=== PATIENT | female | born 1985 | race Caucasian/White ===

== ENCOUNTER 2019-07-22 18:00 | Outpatient (CLI) | payer BC, SELFPAY ==
[2019-07-22 18:25] VITALS: BMI 26.4
[2019-07-22 19:39] VITALS: BP 126/85; PULSE 79; RESP 16; TEMP 37
[2019-07-22 20:40] VITALS: BP 117/80; PULSE 60; RESP 18; TEMP 36.7
[2019-07-22 21:08] VITALS: BP 117/79; PULSE 81; RESP 18; TEMP 36.7
== END 2019-07-22 21:08 | disposition home or self-care (01) ==
PROVIDERS: Family Provider Family Medicine; Visit Provider Family Medicine
DX: O26.899 Other specified pregnancy related conditions, unspecified trimester (principal); Z3A.00 Weeks of gestation of pregnancy not specified; R10.9 Unspecified abdominal pain
CPT/HCPCS: 59025; 99211

== ENCOUNTER 2019-07-23 03:48 | Inpatient (IN) | payer BC, SELFPAY ==
[2019-07-23 03:15] VITALS: BP 116/84; PULSE 85; RESP 18; TEMP 36.7
[2019-07-23] MEDS: lactated ringers 1,000 ML 999 ML IV ×2 (04:22→09:03)
[2019-07-23 04:28] VITALS: BMI 26.4
[2019-07-23 04:32] LABS: Basophils % 0.4 %; Eosinophils # 0.1 10^3/uL (0.0-0.8); Eosinophils % 0.8 %; Hematocrit 39.3 % (37.0-47.0); Hemoglobin 13.5 g/dL (11.5-15.3); Lymphocytes # 2.7 10^3/uL (0.8-4.8); Lymphocytes % 29.4 %; Mean Corpuscular HGB Conc 34.4 g/dL (30.0-36.0); Mean Corpuscular Volume 90.3 fL (81-99); Mean Platelet Volume 10.5 fL (7.4-10.4); Monocytes # 0.6 10^3/uL (0.2-0.9); Monocytes % 6.9 %; Neutrophils # 5.8 10^3/uL (1.8-7.7); Neutrophils % 62.2 %; Nucleated Red Blood Cells % 0 %; Platelet Count 234 10^3/cmm (130-400); Red Blood Count 4.35 10^6/uL (4.1-5.3); Red Cell Distribution Width 12.1 % (12.1-15.1); White Blood Count 9.3 10^3/uL (4.0-10.0)
--- NOTE | 2019-07-23 04:41 | PM.OBGYHP ---
Providers/Chief Complaint Admitting Physician: Juan Clifton MD Chief Complaint: ABD PAIN HPI PATIENT FINANCIAL REPRESENTATIVE History of Present Illness Mariama Chiu is a 33 year old G4, P2 at 40.5 weeks gestation by LMP consistent with 7-week ultrasound. Her is complicated by maternal spina bifida occulta, elevated 1 hour GTT, measuring small for gestational age. The patient presented to labor and delivery triage on the evening of 07/22/2019 with contractions. She was not making any change after 2 hours, so was sent home. She presented again with contractions on the morning of 07/23/2019 and was latonya every 2 to 3 minutes. She was 4 cm upon presentation and changed to 5 cm within 15 minutes. The patient denies any leakage of fluid. She has had some mild vaginal bleeding. She denies any chest pains, shortness of breath, fever, dysuria. Present Details : 4 Para: 2 Review of Systems Const: Denies: fever or chills Card: Denies: chest pain Resp: Denies: shortness of breath or non-productive cough GI: Reports: abdominal pain (Associated with contractions); Denies: nausea or vomiting : Reports: vaginal bleeding; Denies: other (Patient denies leakage of fluid) Medications/Allergies Allergies Allergy/AdvReac Type Severity Reaction Status Date / Time No Known Allergies Allergy Verified 07/22/19 18:38 [facility] PATIENT FINANCIAL REPRESENTATIVE Statuses (acute, chronic, etc) shown below reflect problem list status as previously entered and may not be historically accurate Medical History (Updated 07/23/19 @ 04:47 by Juan Clifton MD) Spina bifida occulta (Acute) Surgical History (Updated 07/23/19 @ 04:47 by Juan Clifton MD) S/p bilateral myringotomy with tube placement (Acute) Family History (Updated 07/23/19 @ 04:48 by Juan Clifton MD) Mother Brain tumor Social History (Updated 07/23/19 @ 04:50 by Juan Clifton MD) Smoking and tobacco status: never smoked Second hand smoke exposure: No Alcohol intake: never Substance/Drug Use: never Marital status: Vitals/I&O/Wt Last Vital Signs Temp 98.0 F 07/23/19 03:15 Pulse 85 07/23/19 03:15 Resp 18 07/23/19 03:15 BP 116/84 01/07/20 03:15 Weight last 48 hrs Weight 164 g Weight 74.389 kg Physical Exam Const: COMMON NORMALS: no apparent distress and oriented x3 HENMT: MOUTH: oral and palatal mucosa normal Eye: COMMON NORMALS: PERRL PUPIL: Yes PERRL Resp: COMMON NORMALS: normal respiratory effort and clear to auscultation bilaterally AUSCULTATION: clear to auscultation bilaterally, no crackles, no rhonchi and no wheezes Cardio: COMMON NORMALS: regular rate and regular rhythm; negative for no murmurs RATE: regular rate RHYTHM: regular rhythm GI: COMMON NORMALS: normal to inspection, nondistended, normoactive bowel sounds and soft to palpation INSPECTION: Yes other (Gravid uterus small for gestational age) PALPATION: Yes soft Neuro: COMMON NORMALS: oriented x3 A&P Additional A&P Information Additional A&P Information: Liza is a 33 year old G4, P2 at 40.5 weeks gestation by LMP consistent with 7-week ultrasound. Her is complicated by maternal spina bifida occulta, elevated 1 hour GTT, measuring small for gestational age. The patient is currently doing well. She is latonya every 2 to 3 minutes. We have a category 1 heart tone tracing with in the mid 120s with moderate variability and good accelerations. The patient requests an epidural. She is currently being bolused for this. The patient is GBS negative. We will proceed with routine intrapartum care. All questions were answered. Attestations Medical Necessity Statement*: The patient will be here for greater than 2 midnights due to routine intrapartum and management of labor and delivery. Coding Level of Care Code Acute Protein Scientist for Lane Ngo
[2019-07-23] MEDS: butorphanol 2 mg/mL SDV 1 mL 1 MG IVP (04:52)
[2019-07-23] MEDS: lactated ringers 1,000 ML 125 ML IV (06:16)
--- NOTE | 2019-07-23 06:20 | ANES.PROC ---
Anesthesia Procedures Procedure/Date: 07/23/19 Epidural: Time Out Performed: Yes Consents Signed: Procedure Consent Consent: requested by attending/covering physician Lumbar Level: L3-L4 Epidural position: sitting Epidural procedure: sterile prep of area (betadine), 1% lidocaine to numb the area (3ml/hr), 18 g needle, neg for paresthesia, test dose given, 1.5% xylocaine 1:200k epi (3ml), 0.2% Ropivacaine bolus ml, placed PCEA, no systemic response, sterile dressing applied, L.U.D. no apparent complications and 0.2% Ropiavacaine @ mls/hr (10ml/hr)
[2019-07-23 07:31] VITALS: RESP 16; TEMP 36.6
[2019-07-23] MEDS: oxytocin 30 UNIT/500 ML BAG IV (08:04)
[2019-07-23 10:30] VITALS: RESP 15; TEMP 36.9
--- NOTE | 2019-07-23 10:33 | PM.DELIVERY ---
 Delivery Note: Date of delivery: 07/23/19 Pre-delivery diagnoses: Liza is a 33 year old G4, P2 at 40.5 weeks gestation by LMP consistent with 7-week ultrasound. Her is complicated by maternal spina bifida occulta, elevated 1 hour GTT, measuring small for gestational age. 1. Intrauterine at 40.5 weeks gestation 2. Maternal spina bifida occulta 3. Elevated 1 hour GTT was normal 3-hour GTT 4. Measuring small for gestational age 5. Spontaneous labor Post-delivery diagnoses: 1. Intrauterine status post spontaneous vaginal delivery at 40.5 weeks gestation 2. Maternal spina bifida occulta 3. Elevated 1 hour GTT was normal 3-hour GTT 4. Measuring small for gestational age 5. Spontaneous labor 6. Delivery of healthy infant male weighing 6 pounds 15 ounces with Apgars of 8 and 9 Procedure: Spontaneous vaginal delivery Anesthesia: epidural Delivering Physician: Juan Clifton MD Estimated blood loss (mL): 75 Pre-Delivery Course: The patient presented to labor and delivery triage with contractions that were every 3 to 5 minutes. They have become more steady overnight and when she presented she was 4 cm dilated. In 15 minutes she had changed to 5 cm dilation. For this reason she was admitted. The patient made slow progress initially and moved to sick centimeters on her own, however did not make rapid change after that. Somewhere between 6:45 AM and 7:[address] No significant fluid was noted. The patient received a labor epidural. The epidural helped well with her pain. The patient was started on IV Pitocin to augment labor as her contractions were starting to space out and she was only 6 cm dilated at 7:05 AM. The patient then began to make steady change and by 9:35 AM on 07/23/2019 she was complete. Delivery: The patient began pushing at 9:44 AM. The patient pushed well and the infant descended well. The delivered in the OA position at 10:08 AM on 07/23/2019. The left shoulder was the anterior shoulder. It delivered with ease. There was no nuchal cord noted. The rest of the infant delivered without complication. The mouth and nose were bulb suctioned by myself. The infant was crying immediately after delivery. The was placed on the mother's chest where the nurses were waiting to care for him. The cord was clamped by myself after approximately 1 minute. The cord was cut by the 's father. Cord blood was obtained. Traction was placed on the umbilical cord and the placenta delivered with ease at 10:11 AM on 07/23/2019. The placenta was noted to be intact with a peripheral insertion site of the umbilical cord with blood vessels tracking through the amniotic sac. No sign of disruption of the vessels was noted. The cervix was inspected and no lacerations were noted. The vaginal wall was inspected and no lacerations were noted. The uterus was firm and midline and there was very little bleeding. Estimated blood loss was 75 mL. Currently both the mother and are doing very well. A&P Additional A&P Information Additional A&P Information: Proceed with routine care. Coding Level of Care Code Acute Microbiology Manager for Lane Ngo
[2019-07-23] MEDS: lanolin oint 7 gm 1 APPLIC TOPICAL (12:25)
[2019-07-23] MEDS: benzocaine-menthol 78 gm Canister 1 SPRAY TOPICAL (12:26)
[2019-07-23 14:45] VITALS: BP 115/75; PULSE 71; RESP 16; TEMP 36.5
[2019-07-23 16:36] VITALS: BP 122/75; PULSE 78; RESP 16; TEMP 36.4; O2SAT 96
[2019-07-23] MEDS: docusate sodium 100 mg Capsule PO (22:02)
[2019-07-23 23:14] LABS: Hematocrit 32.6 % (37.0-47.0); Hemoglobin 11.1 g/dL (11.5-15.3); Mean Corpuscular Hemoglobin 30.6 pg (28.0-34.0); Mean Corpuscular Volume 89.8 fL (81-99); Mean Platelet Volume 10.8 fL (7.4-10.4); Platelet Count 201 10^3/cmm (130-400); Red Blood Count 3.63 10^6/uL (4.1-5.3); Red Cell Distribution Width 12.3 % (12.1-15.1); White Blood Count 13.2 10^3/uL (4.0-10.0)
[2019-07-24 05:47] VITALS: BP 128/76; PULSE 67; RESP 16; TEMP 36.4
[2019-07-24] MEDS: docusate sodium 100 mg Capsule PO (10:30)
[2019-07-24] MEDS: prenatal vitamin Capsule 1 CAP PO (10:30)
[2019-07-24 14:00] VITALS: BP 126/68; PULSE 80; RESP 16; TEMP 36.6; O2SAT 96
--- NOTE | 2019-07-24 20:16 | P.DS_ITS ---
Discharge Providers Date of Admission: 07/23/19 03:48 Date of Discharge: 07/26/19 Attending Provider at Admission: Juan Clifton MD Attending Provider at Discharge: Juan Clifton MD Diagnoses at Discharge Other Information Additional DC diagnoses/information: Liza is a 33 year old G4, P2 at 40.5 weeks gestation by LMP consistent with 7-week ultrasound. Her is complicated by maternal spina bifida occulta, elevated 1 hour GTT, measuring small for gestational age. Post-delivery diagnoses: 1. Intrauterine status post spontaneous vaginal delivery at 40.5 weeks gestation 2. Maternal spina bifida occulta 3. Elevated 1 hour GTT was normal 3-hour GTT 4. Measuring small for gestational age 5. Spontaneous labor 6. Delivery of healthy infant male weighing 6 pounds 15 ounces with Apgars of 8 and 9 Reason for Visit Reason for Visit: Reason For Visit: Contractions Hospital Course Hospital Course: Pre-Delivery Course: The patient presented to labor and delivery triage with contractions that were every 3 to 5 minutes. They have become more steady overnight and when she presented she was 4 cm dilated. In 15 minutes she had changed to 5 cm dilation. For this reason she was admitted. The patient made slow progress initially and moved to sick centimeters on her own, however did not make rapid change after that. Somewhere between 6:45 AM and 7:[address] No significant fluid was noted. The patient received a labor epidural. The epidural helped well with her pain. The patient was started on IV Pitocin to augment labor as her contractions were starting to space out and she was only 6 cm dilated at 7:05 AM. The patient then began to make steady change and by 9:35 AM on 07/23/2019 she was complete. Delivery: The patient began pushing at 9:44 AM. The patient pushed well and the descended well. The delivered in the OA position at 10:08 AM on 07/23/2019. The left shoulder was the anterior shoulder. It delivered with ease. There was no nuchal cord noted. The rest of the delivered without complication. The mouth and nose were bulb suctioned by myself. The was crying immediately after delivery. The was placed on the mother's chest where the nurses were waiting to care for him. The cord was clamped by myself after approximately 1 minute. The cord was cut by the 's father. Cord blood was obtained. Traction was placed on the umbilical cord and the placenta delivered with ease at 10:11 AM on 07/23/2019. The placenta was noted to be intact with a peripheral insertion site of the umbilical cord with blood vessels tracking through the amniotic sac. No sign of disruption of the vessels was noted. The cervix was inspected and no lacerations were noted. The vaginal wall was inspected and no lacerations were noted. The uterus was firm and midline and there was very little bleeding. Estimated blood loss was 75 mL. Currently both the mother and are doing very well. course: The patient is done very well without any complications. She is ambulating, voiding, passing gas and tolerating food by mouth. Her pain is been well controlled. Her bleeding is decreasing well. The patient is in agreement with discharge home at this time. Physical Exam Narrative: EXAM NARRATIVE: General: Alert and oriented x3 Mouth: Pharynx normal with moist mucous membranes Cardiac: Regular rate and rhythm without murmur Lungs: Clear to auscultation bilaterally. No wheezes crackles or rhonchi present. Abdomen: Soft, nontender, uterus is firm and 3 cm below the umbilicus. Extremities: +1 ptting edema in the bilateral lower extremities Urinary Catheter Management^: Spence: Cath Placed During This Visit: no Discharge Data Data Completed and Pending: Labs from last 24 hours 07/23/19 22:56 WBC 13.2 H RBC 3.63 L Hgb 11.1 L Hct 32.6 L MCV 89.8 MCH 30.6 MCHC 34.0 RDW 12.3 Plt Count 201 MPV 10.8 H Vitals: Last Vital Signs Temp 97.9 F 07/24/19 14:00 Pulse 80 07/24/19 14:00 Resp 16 07/24/19 14:00 BP 126/68 07/24/19 14:00 Pulse Ox 96 07/24/19 14:00 Discharge Plan Discharge Patient Disposition: Home, Self-Care Condition: Stable Prescriptions: New ibuprofen 800 mg Tablet 800 mg PO TID Qty: 60 RF: 0 hydrocodone-acetaminophen 5-325 mg Tablet 1 tab PO Q6H PRN (Reason: Moderate To Severe Pain) Qty: 10 RF: 0 Continued 28-800 mg-mcg Tablet 1 tab PO DAILY RF: 0 Discharge Orders: Discharge Order (Routine); Ordered 07/24/19 Ordered By: Juan Clifton Referrals: Shaw Sorto DO [Family Provider] - 6 Weeks (Your 6 week follow up appointment with Dr. Sorto is Wednesday September 04, 2019 at 12:00am. ) Juan Clifton MD [Physician] - 6 Weeks Discharge Diet: Regular Discharge Activity: Resume usual activity Patient Instructions: Hydrocodone/Acetaminophen (By mouth), Vaginal Delivery (DC), OB Discharge Report, OB Food/Drug Interaction Guide, OB Care at Home, OB Home Care, OB [facility], OB Proud Parent Packet Activity Restrictions/Additional Instructions: Nothing per vagina for 6 weeks. Showers okay, no baths for 6 weeks. Discharge Date/Time: 07/24/19 14:32 Discharge Attestations Time Spent in Discharge Care*: greater than 30 min Quality Metrics Clinical Quality Measures During this hospital stay, did patient experience: None Coding Level of Care Code Acute Graphic Art Technician for Andresg Jeni
== END 2019-07-24 14:32 | disposition home or self-care (01) | DRG 807 ==
LOC: OBGYN 04:00
PROVIDERS: Admitting Provider Family Medicine; Family Provider Family Medicine; Visit Provider Family Medicine
DX: O80 Encounter for full-term uncomplicated delivery (principal); Z37.0 Single live birth; Z3A.40 40 weeks gestation of pregnancy
CPT/HCPCS: 36415; 51702; 59025; 59409; 85025; 85027; 99211; 99221; J0595; J2795